=== PATIENT | female | born 1960 | race Caucasian/White ===

== ENCOUNTER 2022-11-14 06:53 | Day surgery (SDC) | payer BC ==
[2022-11-13 15:07] LABS: ANION GAP 7 (8-16); BLOOD UREA NITROGEN 13 MG/DL (7-18); BUN/CREATININE RATIO 15.7 (6.6-38.0); CALCIUM 9.3 MG/DL (8.5-10.1); CHLORIDE 104 MMOL/L (99-107); CREATININE 0.83 MG/DL (0.40-0.90); GLUCOSE 101 MG/DL (70-104); POTASSIUM 4.4 MMOL/L (3.5-5.1); SODIUM 140 MMOL/L (135-145); TOTAL CARBON DIOXIDE 29.3 MMOL/L (24-32); eGFR 69 ML/MIN
[2022-11-13 15:11] LABS: APTT 33 SECONDS (22-32)
[2022-11-13 15:22] LABS: BASOPHILS # (AUTO) 0.1 X10'3 (0-0.2); BASOPHILS % (AUTO) 1.8 % (0-1); EOSINOPHILS # (AUTO) 0.2 X10'3 (0-0.9); EOSINOPHILS % (AUTO) 2.8 % (0-6); HEMATOCRIT 40.4 % (35.0-45.0); HEMOGLOBIN 13.3 g/dl (12.0-16.0); LYMPHOCYTES # (AUTO) 2.4 X10'3 (1.1-4.8); LYMPHOCYTES % (AUTO) 36.5 % (21-51); MEAN CORPUSCULAR HEMOGLOBIN 29.1 PG (27.0-31.0); MEAN PLATELET VOLUME 8.8 FL (7.4-10.4); MONOCYTES # (AUTO) 0.6 X10'3 (0-0.9); MONOCYTES % (AUTO) 9.3 % (2-12); NEUTROPHILS # (AUTO) 3.3 X10'3 (1.8-7.7); NEUTROPHILS % (AUTO) 49.6 % (42-75); PLATELET COUNT 258 X10'3 (140-440); RED BLOOD COUNT 4.59 X10'6 (4.20-5.60); RED CELL DISTRIBUTION WIDTH 13.2 % (11.5-14.5); WHITE BLOOD COUNT 6.6 X10'3 (4.5-11.0)
[2022-11-14] VITALS (9 sets, daily range): BP systolic 130–165; BP diastolic 67–86
[~2022-11-14] VITALS: Ht 157.5 cm; Wt 65.6 kg
[2022-11-14] MEDS ORDERED: RIVA20TA PO (08:04)
[2022-11-14] MEDS ORDERED: LOTE5DRO EACHEYE (08:04)
[2022-11-14] MEDS ORDERED: ETAN50DI3 SQ (08:04)
[2022-11-14] MEDS ORDERED: MYCO500T5 PO (08:04)
[2022-11-14] MEDS ORDERED: GABA300C PO (08:04)
[2022-11-14] MEDS ORDERED: DULO20CA18 PO (08:04)
[2022-11-14] MEDS ORDERED: ROSU40TA22 PO (08:04)
[2022-11-14] MEDS ORDERED: GABA-530 PO (08:04)
[2022-11-14] MEDS ORDERED: FLEC100T PO (08:04)
[2022-11-14] MEDS ORDERED: METO-384 PO (08:04)
[2022-11-14] MEDS ORDERED: OMEP40CA21 PO (08:04)
[2022-11-14] MEDS ORDERED: ESTR8.1S (08:04)
[2022-11-14] MEDS ORDERED: EZET10TA48 PO (08:14)
[2022-11-14] MEDS ORDERED: CETI-194 PO (08:15)
[2022-11-14] MEDS ORDERED: OASIS EYE (08:16)
[2022-11-14] MEDS ORDERED: BIOT10004 (08:22)
[2022-11-14] MEDS ORDERED: Vitamin D3 (08:22)
[2022-11-14] MEDS ORDERED: Zinc (08:22)
[2022-11-14] MEDS ORDERED: LYSI500C5 (08:22)
[2022-11-14] MEDS ORDERED: IBUP-2697 PO (08:22)
[2022-11-14] MEDS ORDERED: LORazepam 0.5 MG tablet PO PRN (08:40)
[2022-11-14] MEDS ORDERED: diphenhydrAMINE 25mg capsule PO PRN (08:40)
[2022-11-14] MEDS ORDERED: normal saline 1,000 ML IV SCH (08:40)
[2022-11-14] MEDS ORDERED: nitroGLYCERIN-Tridil 50MG/D5W 250 ML IV ONE (09:26)
[2022-11-14] MEDS ORDERED: heparin 1,000unit/ml 10ml vial 10 ML ONE (09:27)
[2022-11-14] MEDS ORDERED: verapamil 2.5 mg/ml inj IV ONE (09:27)
[2022-11-14] MEDS ORDERED: midazolam 1 mg/ML 2ml injection ONE (09:27)
[2022-11-14] MEDS ORDERED: iohexol 350MG/ML 100ml bottle IV ONE (09:27)
[2022-11-14] MEDS ORDERED: fentaNYL/PF 50MCG/1 ML 2ML syringe ONE (09:28)
[2022-11-14] MEDS ORDERED: LIDOcaine 1% (10mg/ml) 2ml vial ONE (09:28)
[2022-11-14] MEDS ORDERED: iohexol 350 MG/ML 50ML vial IV ONE (09:39)
--- NOTE | 2022-11-14 10:35 | NUR ---
Patient back from procedure. 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 labeling strategist nurses state the hand is ok and it's 'venous pooling'. Hand warm to touch, Cap refill less than 2 seconds. Will continue to monitor.
[2022-11-14] MEDS ORDERED: normal saline 1,000 ML IV ONE (11:08)
[2022-11-14] MEDS ORDERED: ibuprofen tablet 400 MG TABLET PO ONE (12:30)
--- NOTE | 2022-11-14 14:20 | NUR ---
Removed vasc band. Hematoma developed suddenly. Held 5-10 mins manual pressure and hematoma massaged out. Applied tagaderm and gauze dressing and pressure dressing, will continue to monitor.
--- NOTE | 2022-11-14 14:50 | NUR ---
Loosened coban dressing. No hematoma present.
== END 2022-11-14 15:05 | disposition home or self-care (01) ==
LOC: SSTAY O 06:53
PROVIDERS: ATTEND Internal Medicine Cardiovascular Disease
DX: I25.10 Atherosclerotic heart disease of native coronary artery without angina pectoris (principal); I48.91 Unspecified atrial fibrillation; M06.9 Rheumatoid arthritis, unspecified; I49.5 Sick sinus syndrome; I36.1 Nonrheumatic tricuspid (valve) insufficiency; E78.49 Other hyperlipidemia; I47.1 Supraventricular tachycardia; Z95.0 Presence of cardiac pacemaker; Z79.899 Other long term (current) drug therapy
CPT/HCPCS: 76937; 80048; 85025; 85610; 85730; 93005; 93458; 99152; A6258; C1769; C1894; J1644; J2250; J3010; J3490; J7030; Q0163; Q9967; A6402; C1725